=== PATIENT | female | born 1940 | race Caucasian/White ===

== ENCOUNTER → 2017-02-16 | Outpatient (CLI) | payer MEDICARE, OTHER ==
[~2017-02-16] MED LIST: ALBU90OI INH; ASPI81CH; ASPI81EC PO; BRIM.15SO OD; BUPR150T2 PO; CALCAVITDA PO; CITA20; CITALOPRAM PO; CLIN300 PO; CRANBERRY PO; FAMO20; FURO40 PO; GLIP5 PO; HYDACE10B PO; INSULANPEN; IRBE150 PO; METF500 PO; METTREX2.5; METTREX2.5 PO; MULVITMIND PO; OMEP20ER PO; OSCAL PO; OXYACE5T PO; PRAVACHOL PO; Symbicort 16010.2 GM; TIMO.5OPSO RIGHTEYE; TUDORZA PRESS400 MCG; VITAMIN D PO; Ventolin Soln3 ML
== END | disposition home or self-care (01) ==
LOC: OLS 09:36
DX: R05 Cough (principal)
CPT/HCPCS: 87015; 87116; 87206

== ENCOUNTER → 2017-02-21 | Outpatient (CLI) | payer MEDICARE, OTHER | END | disposition home or self-care (01) | LOC: OLS 03:30 | DX: R05 Cough (principal) | CPT/HCPCS: 87015; 87116; 87206 ==

== ENCOUNTER → 2017-02-22 | Outpatient (CLI) | payer MEDICARE, OTHER | END | disposition home or self-care (01) | LOC: OLS 11:01 | DX: R05 Cough (principal) | CPT/HCPCS: 87015; 87070; 87116; 87205; 87206 ==

== ENCOUNTER → 2017-04-08 | Outpatient (CLI) | payer MEDICARE, OTHER ==
[2017-04-11 14:38] LABS: Stool Occult Bld Immuno 1 Negative (NEGATIVE)
== END ==
LOC: OLS 07:19 → LAB SHORT 07:19
PROVIDERS: Nurse Practitioner Family
DX: Z12.11 Encounter for screening for malignant neoplasm of colon (principal)
CPT/HCPCS: G0328

== ENCOUNTER 2020-03-11 08:06 | Day surgery (SDC) | payer MEDICARE, OTHER ==
[~2020-03-11] VITALS: Ht 160 cm; Wt 86.4 kg
[~2020-03-11 08:06] MED LIST changes: +ALBU3IS INH; +B-COMPLEX WITH1 EACH PO; +BASAGLAR K100 UNIT/1 SC; +BRIMONIDINE TART5 M1 RIGHTEYE; +FAMO20 PO; +FERROUS SULFAT325 M3 PO; +Flonase 0.05% N16 GM; +GABA300T24 PO; +GLIP2.5ER PO; +Hair, Skin & N1 EACH PO; +Norco 10-325 T1 EACH PO; +Pravastatin Sod40 MG PO; +STIOLTO RESPIMAT4 G1 INH; +TIMO.5OPSO LEFTEYE
[2020-03-11] MEDS ORDERED: METF500C (08:57)
--- NOTE | 2020-03-11 09:28 | NUR ---
03/11/20 0928 Dayami Canales PT'S LEFT, NONOPERATIVE EYE IS BLOODSHOT. DR VALLADARES AND DR COTTRELL AWARE. PRESENT ON PT ARRIVAL
== END 2020-03-11 10:20 | disposition home or self-care (01) ==
LOC: ORSCSDS 08:06
PROVIDERS: Ophthalmology
PROC: 08RJ3JZ Replacement of Right Lens with Synthetic Substitute, Percutaneous Approach (ICD-10-PCS; principal; 2020-03-11 09:30)
DX: H25.11 Age-related nuclear cataract, right eye (principal); E11.9 Type 2 diabetes mellitus without complications; I10 Essential (primary) hypertension; J44.9 Chronic obstructive pulmonary disease, unspecified; Z79.899 Other long term (current) drug therapy; Z79.84 Long term (current) use of oral hypoglycemic drugs
CPT/HCPCS: 82947; J2001; J2250; J3010; J3301; J7040; V2632

== ENCOUNTER → 2020-12-25 | Outpatient (CLI) | payer MEDICARE, OTHER ==
[~2020-12-25] MED LIST changes: +METF500C
== END | disposition home or self-care (01) ==
LOC: LAB SHORT 15:30 → LAB 15:30
PROVIDERS: Family Medicine
DX: Z51.81 Encounter for therapeutic drug level monitoring (principal); Z79.899 Other long term (current) drug therapy
CPT/HCPCS: G0480

== ENCOUNTER → 2024-02-05 | Outpatient (CLI) | payer MEDICARE, OTHER ==
[2024-02-05 12:38] LABS: Creatinine, Urine Random 52.4 mg/dL (27.00-270.00); Protein, Urine Random 8.9 mg/dL (0.0-11.9); Protein/Creat Ratio, Ur Random 0.2
== END | disposition home or self-care (01) ==
LOC: LAB SHORT 08:13 → LAB 08:13
PROVIDERS: Hospitalist
DX: N18.4 Chronic kidney disease, stage 4 (severe) (principal)
CPT/HCPCS: 36415; 82570; 84156; 85610